=== PATIENT | male | born 1945 | race Caucasian/White ===

== ENCOUNTER 2024-01-01 10:51 | Emergency (ER) | payer OTHER ==
[2024-01-01 11:15] VITALS: TEMP 97.2; BMI 27.8
[2024-01-01 12:11] LABS: HEMATOCRIT 41.7 % (35.4-49); HEMOGLOBIN 13.5 G/dL (11.7-16.9); MCH 32.2 pg (25.7-33.7); MCHC 32.3 g/dl (32.0-35.9); MEAN CELL VOLUME 99.7 fl (80-96); MEAN PLT VOLUME 8.8 fl (7.5-11.1); PLATELET COUNT 144.2 10^3/uL (134-434); RBC 4.18 10^6/uL (4.00-5.60); RDW 14.5 % (11.9-15.9); WHITE BLOOD COUNT 8.2 10^3/uL (4.0-10.8)
[2024-01-01 12:37] LABS: ALBUMIN 4.2 g/dl (3.4-5.0); BILIRUBIN,TOTAL 0.5 mg/dl (0.2-1); CALCIUM 8.9 mg/dl (8.5-10.1); CREATININE 1.1 mg/dl (0.6-1.3); POTASSIUM 4.6 mmol/L (3.5-5.1); TOT PROT 6.4 g/dl (6.4-8.2)
[2024-01-01 13:17] VITALS: BP 108/41; PULSE 62; RESP 15
[2024-01-01 14:00] LABS: PLATELET ESTIMATE ADEQUATE
== END 2024-01-01 13:30 | disposition home or self-care (01) ==
LOC: FER 10:51
DX: I95.9 Hypotension, unspecified (principal)
CPT/HCPCS: 36415; 71046-TC-FY; 80053; 81003; 84484; 85025; 87086; 93005; 99285-25